=== PATIENT | female | born 1950 | race Native Hawaiian/Other Pacific Islander ===

== ENCOUNTER 2018-01-06 14:57 | Inpatient (IN) | payer BC, MEDICARE, OTHER ==
[2018-01-06 15:40] VITALS: BMI 29.4
--- NOTE | 2018-01-06 16:41 | CP.PCM.HP ---
History of Present Illness - History of Present Illness History of Present Illness: 67 yo female with history of DM2, HTN and HLD had right TKR on 01/02/2018 at [facility] after failing conservative management of arthritis of the right knee. Present on Admission - Present on Admission Any Indicators Present on Admission: No History of DVT/PE: No History of Uncontrolled Diabetes: No Urinary Catheter: No Decubitus Ulcer Present: No Review of Systems - Review of Systems All systems: reviewed and no additional remarkable complaints except (aside from those mentioned above, 12 point system review were negative by me) Past Patient History - Tetanus Immunizations Tetanus Immunization: Unknown - Past Medical History & Family History Past Medical History?: Yes - Past Social History Smoking Status: Never Smoked Chewing Tobacco Use: No Cigar Use: No Alcohol: None Drugs: Denies Home Situation {Lives}: With Family - CARDIAC Hx Hypercholesterolemia: Yes Hx Hypertension: Yes - ENDOCRINE/METABOLIC Hx Diabetes Mellitus Type 2: Yes - HEMATOLOGICAL/ONCOLOGICAL Hx Blood Transfusions: No Hx Chemotherapy: Yes (LAST DOSE 2011) - MUSCULOSKELETAL/RHEUMATOLOGICAL Hx Musculoskeletal Disorders: Yes Hx Osteoarthritis: Yes (WITH LIGAMENT TEAR RT.KNEE) - SURGICAL HISTORY Hx Surgeries: Yes Hx Thyroidectomy: Yes Hx Vascular Access Device: Yes (RT. CHEST FOR CHEMO.) - ANESTHESIA Hx Anesthesia: Yes Hx Anesthesia Reactions: No Hx Malignant Hyperthermia: No Meds Allergies/Adverse Reactions: Allergies Allergy/AdvReac Type Severity Reaction Status Date / Time shrimp Allergy RASH Verified 01/06/18 15:36 Physical Exam - Constitutional Appears: No Acute Distress - Head Exam Head Exam: ATRAUMATIC - Eye Exam Eye Exam: absent: Scleral icterus - ENT Exam ENT Exam: Mucous Membranes Moist - Neck Exam Neck exam: Negative for: Meningismus - Respiratory Exam Respiratory Exam: absent: Rales, Rhonchi, Wheezes, Respiratory Distress, Stridor - Cardiovascular Exam Cardiovascular Exam: REGULAR RHYTHM, +S1, +S2 - GI/Abdominal Exam GI & Abdominal Exam: Soft. absent: Tenderness - Rectal Exam Rectal Exam: Deferred - Extremities Exam Extremities exam: Positive for: joint swelling (right knee with limitation of ROM) - Back Exam Back exam: NORMAL INSPECTION - Neurological Exam Neurological exam: Alert, Oriented x3 - Psychiatric Exam Psychiatric exam: Normal Affect - Skin Skin Exam: Dry, Intact Assessment & Plan - Assessment and Plan (Free Text) Assessment: 67 yo female with history of DM2, HTN and HLD had right TKR on 01/02/2018 at [facility] after failing conservative management of arthritis of the right knee. Patient was transferred to [facility] to have rehab in TCU. 1. Post Right TKR refer to PT/OT for evaluation and management ASA 325mg PO BID for DVT prophylaxis Percocet 1 tab PO q 4hrs for pain control 2. HTN BP stable continue Norvasc, Lisinopril, and HyZaar 3. DM2 diabetic diet accuheck ACHS Metformi 500mg PO q am HgA1c, CMP in am
[2018-01-06 19:54] LABS: SQUAMOUS EPITHIAL < 1 /hpf (0-5); URINE BILIRUBIN NEGATIVE (NEGATIVE); URINE BLOOD NEGATIVE (NEGATIVE); URINE CLARITY CLEAR (Clear); URINE COLOR YELLOW (YELLOW); URINE GLUCOSE (UA) NEG (Normal); URINE LEUKOCYTE ESTERASE NEG Leu/uL (Negative); URINE PROTEIN NEGATIVE (NEGATIVE)
[2018-01-06] MEDS: Oxycodone/Acetaminophen 5/325 mg Tab PO PRN (20:14)
[2018-01-07] MEDS: Oxycodone/Acetaminophen 5/325 mg Tab PO PRN ×4 (06:52→21:06)
[2018-01-07 07:49] LABS: BASO % 0.6 % (0.0-2.0); EOS # 0.2 K/uL (0.0-0.7); EOS % 2.8 % (0.0-4.0); HEMOGLOBIN 10.3 g/dL (12.0-16.0); LYMPH # 0.8 K/uL (1.0-4.3); LYMPH % 13.3 % (20.0-40.0); MEAN CELL VOLUME 90.7 fl (81.0-99.0); MEAN CORPUSCULAR HEMOGLOBIN 31.3 pg (27.0-31.0); MEAN CORPUSCULAR HGB CONC 34.5 g/dL (33.0-37.0); MEAN PLATELET VOLUME 6.7 fl (7.2-11.7); MONO # 0.5 K/uL (0.0-0.8); MONO % 8.1 % (0.0-10.0); NEUT # 4.6 K/uL (1.8-7.0); NEUT % 75.2 % (50.0-75.0); RBC 3.29 Mil/uL (3.80-5.20); RED CELL DISTRIBUTION WIDTH 13.8 % (11.5-14.5); WHITE BLOOD COUNT 6.2 K/uL (4.8-10.8)
[2018-01-07 07:54] LABS: ALB/GLOB RATIO 1.2 (1.0-2.1); ALT/SGPT 32 U/L (9-52); AST/SGOT 34 U/L (14-36); BLOOD UREA NITROGEN 11 mg/dl (7-17); CALCIUM 8.9 mg/dL (8.4-10.2); GFR NON-AFRICAN AMERICAN > 60
[2018-01-07] MEDS ORDERED: LOSARTAN PO SCH (09:00)
[2018-01-07] MEDS ORDERED: HYDROCHLOROTHIAZIDE PO SCH (09:00)
[2018-01-08] MEDS: Oxycodone/Acetaminophen 5/325 mg Tab PO PRN ×3 (09:02→21:05)
[2018-01-09] MEDS: Oxycodone/Acetaminophen 5/325 mg Tab PO PRN ×4 (06:18→17:48)
[2018-01-10] MEDS: Oxycodone/Acetaminophen 5/325 mg Tab PO PRN ×4 (05:35→19:51)
[2018-01-10 08:14] VITALS: RESP 20
[2018-01-11] MEDS: Oxycodone/Acetaminophen 5/325 mg Tab PO PRN ×3 (08:28→21:09)
--- NOTE | 2018-01-11 10:24 | US ---
Date of service: 01/10/2018 PROCEDURE: Bilateral lower extremity venous duplex Doppler. HISTORY: SWELLING COMPARISON: None available. TECHNIQUE: Bilateral common femoral, superficial femoral, popliteal and posterior tibial veins were evaluated. Flow was assessed with color Doppler, compressibility, assessment of phasic flow and augmentation response. FINDINGS: COMMON FEMORAL VEIN: Right CFV: Unremarkable. Left CFV: Unremarkable. SUPERFICIAL FEMORAL VEIN: Right SFV: Unremarkable. Left SFV: Unremarkable. POPLITEAL VEIN: Right Popliteal: Unremarkable. Left Popliteal: Unremarkable. POSTERIOR TIBIAL VEIN: Right PTV: Unremarkable. Left PTV: Unremarkable. OTHER FINDINGS: None. IMPRESSION: No evidence of deep venous thrombosis. A preliminary report was provided by [facility].
--- NOTE | 2018-01-11 14:05 | CP.PCM.DIS ---
Provider - Provider Date of Admission: 01/06/18 15:40 Attending physician: Keven Gonzalez MD Time Spent in preparation of Discharge (in minutes): 30 Diagnosis - Discharge Diagnosis (1) Total knee replacement status Status: Acute Hospital Course - Lab Results Lab Results: Most Recent Lab Values WBC 6.2 K/uL (4.8-10.8) 01/07/18 06:00 RBC 3.29 Mil/uL (3.80-5.20) L 01/07/18 06:00 Hgb 10.3 g/dL (12.0-16.0) L 01/07/18 06:00 Hct 29.9 % (34.0-47.0) L 01/07/18 06:00 MCV 90.7 fl (81.0-99.0) 01/07/18 06:00 MCH 31.3 pg (27.0-31.0) H 01/07/18 06:00 MCHC 34.5 g/dL (33.0-37.0) 01/07/18 06:00 RDW 13.8 % (11.5-14.5) 01/07/18 06:00 Plt Count 225 K/uL (130-400) 01/07/18 06:00 MPV 6.7 fl (7.2-11.7) L 01/07/18 06:00 Neut % (Auto) 75.2 % (50.0-75.0) H 01/07/18 06:00 Lymph % (Auto) 13.3 % (20.0-40.0) L 01/07/18 06:00 [place] % (Auto) 8.1 % (0.0-10.0) 01/07/18 06:00 Eos % (Auto) 2.8 % (0.0-4.0) 01/07/18 06:00 Baso % (Auto) 0.6 % (0.0-2.0) 01/07/18 06:00 Neut # (Auto) 4.6 K/uL (1.8-7.0) 01/07/18 06:00 Lymph # (Auto) 0.8 K/uL (1.0-4.3) L 01/07/18 06:00 [place] # (Auto) 0.5 K/uL (0.0-0.8) 01/07/18 06:00 Eos # (Auto) 0.2 K/uL (0.0-0.7) 01/07/18 06:00 Baso # (Auto) 0.0 K/uL (0.0-0.2) 01/07/18 06:00 Sodium 139 mmol/l (132-148) 01/07/18 06:00 Potassium 4.2 MMOL/L (3.6-5.0) 01/07/18 06:00 Chloride 100 mmol/L (98-107) 01/07/18 06:00 Carbon Dioxide 31 mmol/L (22-30) H 01/07/18 06:00 Anion Gap 12 (10-20) 01/07/18 06:00 BUN 11 mg/dl (7-17) 01/07/18 06:00 Creatinine 0.6 mg/dl (0.7-1.2) L 01/07/18 06:00 Est GFR ( Amer) > 60 01/07/18 06:00 Est GFR (Non-Af Amer) > 60 01/07/18 06:00 POC Glucose (mg/dL) 128 mg/dL (65-110) H 01/11/18 11:07 Random Glucose 222 mg/dL (65-105) H 01/07/18 06:00 Calcium 8.9 mg/dL (8.4-10.2) 01/07/18 06:00 Total Bilirubin 1.2 mg/dl (0.2-1.3) 01/07/18 06:00 AST 34 U/L (14-36) 01/07/18 06:00 ALT 32 U/L (9-52) 01/07/18 06:00 Alkaline Phosphatase 61 U/L (38-126) 01/07/18 06:00 Total Protein 7.3 G/DL (6.3-8.2) 01/07/18 06:00 Albumin 4.0 g/dL (3.5-5.0) 01/07/18 06:00 Globulin 3.3 gm/dL (2.2-3.9) 01/07/18 06:00 Albumin/Globulin Ratio 1.2 (1.0-2.1) 01/07/18 06:00 Urine Color Yellow (YELLOW) 01/06/18 19:43 Urine Clarity Clear (Clear) 01/06/18 19:43 Urine pH 6.0 (5.0-8.0) 01/06/18 19:43 Ur Specific [place] 1.013 (1.003-1.030) 01/06/18 19:43 Urine Protein Negative mg/dL (NEGATIVE) 01/06/18 19:43 Urine Glucose (UA) Neg mg/dL (Normal) 01/06/18 19:43 Urine Ketones Negative mg/dL (NEGATIVE) 01/06/18 19:43 Urine Blood Negative (NEGATIVE) 01/06/18 19:43 Urine Nitrate Negative (NEGATIVE) 01/06/18 19:43 Urine Bilirubin Negative (NEGATIVE) 01/06/18 19:43 Urine Urobilinogen 2.0 mg/dL (0.2-1.0) H 01/06/18 19:43 Ur Leukocyte Esterase Neg [place]/uL (Negative) 01/06/18 19:43 Urine RBC (Auto) 1 /hpf (0-3) 01/06/18 19:43 Urine Microscopic WBC < 1 /hpf (0-5) 01/06/18 19:43 Ur Squamous Epith Cells < 1 /hpf (0-5) 01/06/18 19:43 - Hospital Course Hospital Course: 67 yo female with history of DM2, HTN and HLD had right TKR on 01/02/2018 at [facility] after failing conservative management of arthritis of the right knee. Patient was transferred to [facility] to have rehab in TCU. 1. Post Right TKR refer to PT/OT for evaluation and management ASA 325mg PO BID for DVT prophylaxis Percocet 1 tab PO q 4hrs for pain control 2. HTN BP stable continue Norvasc, Lisinopril, and HyZaar 3. DM2 diabetic diet accuheck ACHS Metformi 500mg PO q am HgA1c, CMP in am Discharge Exam - Head Exam Head Exam: ATRAUMATIC, NORMOCEPHALIC - Eye Exam Eye Exam: EOMI, Normal appearance, PERRL Pupil Exam: NORMAL ACCOMODATION - ENT Exam ENT Exam: Mucous Membranes Moist, Normal Oropharynx - Respiratory Exam Respiratory Exam: Clear to PA & Lateral, NORMAL BREATHING PATTERN - Cardiovascular Exam Cardiovascular Exam: RRR, +S1, +S2 - GI/Abdominal Exam GI & Abdominal Exam: Normal Bowel Sounds, Soft. absent: Organomegaly, Tenderness - Extremities Exam Extremities exam: normal capillary refill, pedal pulses present - Back Exam Back exam: absent: CVA tenderness (L), CVA tenderness (R) - Neurological Exam Neurological exam: Alert, Oriented x3 - Psychiatric Exam Psychiatric exam: Normal Affect, Normal Mood - Skin Skin Exam: Dry, Warm Discharge Plan - Discharge Medications Prescriptions: amLODIPine [Norvasc] 10 mg PO DAILY #30 tab Aspirin 325 mg PO BID #60 tab Atorvastatin [Lipitor] 40 mg PO DAILY@2100 #30 tab Lisinopril [Zestril] 5 mg PO DAILY #30 tab metFORMIN [glucOPHAGE] 500 mg PO BRK #30 tab oxyCODONE/Acetaminophen [Percocet 5/325 mg Tab] 1 tab PO Q4 PRN #20 tab PRN Reason: Pain, Severe (8-10) - Follow Up Plan Condition: GOOD Disposition: HOME/ ROUTINE
[2018-01-11 16:57] VITALS: TEMP 98.2
[2018-01-11 22:10] VITALS: BP 110/78; PULSE 74; O2SAT 96
== END 2018-01-11 21:45 | disposition home or self-care (01) | DRG 561 ==
LOC: H.TCU 15:40
PROC: F07Z9FZ Gait Training/Functional Ambulation Treatment using Assistive, Adaptive, Supportive or Protective Equipment (ICD-10-PCS; principal; 2018-01-06)
PROC: F08Z4FZ Home Management Treatment using Assistive, Adaptive, Supportive or Protective Equipment (ICD-10-PCS; 2018-01-06)
PROC: F07L6FZ Therapeutic Exercise Treatment of Musculoskeletal System - Lower Back / Lower Extremity using Assistive, Adaptive, Supportive or Protective Equipment (ICD-10-PCS; 2018-01-06)
DX: Z47.1 Aftercare following joint replacement surgery (principal); Z96.651 Presence of right artificial knee joint; M17.11 Unilateral primary osteoarthritis, right knee; E11.9 Type 2 diabetes mellitus without complications; E78.5 Hyperlipidemia, unspecified; E78.00 Pure hypercholesterolemia, unspecified; I10 Essential (primary) hypertension; Z91.013 Allergy to seafood